=== PATIENT | male | born 1930 | race Caucasian/White ===

== ENCOUNTER 2017-03-02 15:35 | Emergency (ER) | payer MEDICARE, OTHER ==
[2017-03-02] MEDS ORDERED: OXYCODONE-ACETAMINOPHEN 5-325 MG TABLET PO ONE (17:17)
--- NOTE | 2017-03-02 17:19 | ER Document Report ---
ED Medical Screen (RME) - General Chief Complaint: Back Pain Stated Complaint: BACK PAIN Mode of Arrival: Wheelchair Information source: Patient Notes: 86-year-old male presents with complaints of back pain. Patient notes she's been having minor achiness in the low back for the past couple weeks today while he was trying to brush his teeth he had sharp pain in his low back pain around the right flank to the mid abdomen Patient admits to hurts with movement I have greeted and performed a rapid initial assessment of this patient. A comprehensive ED assessment and evaluation of the patient, analysis of test results and completion of the medical decision making process will be conducted by additional ED providers. PHYSICAL EXAMINATION: GENERAL: Well-appearing, well-nourished and in no acute distress. Patient in wheelchair HEAD: Atraumatic, normocephalic. EYES: Pupils equal round and reactive to light, extraocular movements intact, sclera anicteric, conjunctiva are normal. ENT: Nares patent, oropharynx clear without exudates. Moist mucous membranes. NECK: Normal range of motion, supple without lymphadenopathy LUNGS: Breath sounds clear to auscultation bilaterally and equal. No wheezes rales or rhonchi. HEART: Regular rate and rhythm without murmurs ABDOMEN: Soft, nontender, nondistended abdomen. No guarding, no rebound. No masses appreciated. Musculoskeletal: Right flank tenderness worsen with movement NEUROLOGICAL: Cranial nerves grossly intact. Normal speech, normal gait. Normal sensory, motor exams PSYCH: Normal mood, normal affect. SKIN: Warm, Dry, normal turgor, no rashes or lesions noted. TRAVEL OUTSIDE OF THE [place] IN LAST 30 DAYS: No - Related Data Allergies/Adverse Reactions: No Known Allergies Allergy (Verified 03/02/17 15:38) Past Medical History - Social History Chew tobacco use (# tins/day): No Frequency of alcohol use: None Drug Abuse: None - Past Medical History Cardiac Medical History: Reports: Hx Hypertension - recently taken off medication Denies: Hx Heart Attack Pulmonary Medical History: Denies: Hx Asthma Neurological Medical History: Denies: Hx Cerebrovascular Accident, Hx Seizures Renal/ Medical History: Denies: Hx Peritoneal Dialysis GI Medical History: Denies: Hx Hepatitis, Hx Hiatal Hernia, Hx Ulcer Infectious Medical History: Denies: Hx Hepatitis Surgical Hx: Negative Past Surgical History: Denies: Hx Open Heart Surgery, Hx Pacemaker Physical Exam - Vital signs Vitals: Temp Pulse Resp BP Pulse Ox 98.2 F 92 19 165/97 H 94 03/02/17 15:39 03/02/17 15:39 03/02/17 15:39 03/02/17 15:39 03/02/17 15:39 Course - Vital Signs Vital signs: Temp Pulse Resp BP Pulse Ox 98.2 F 92 19 165/97 H 94 03/02/17 15:39 03/02/17 15:39 03/02/17 15:39 03/02/17 15:39 03/02/17 15:39
[2017-03-02 17:53] LABS: ABSOLUTE BASOPHILS # (AUTO) 0.1 10^3/uL (0.0-0.2); ABSOLUTE EOSINOPHILS # (AUTO) 0.3 10^3/uL (0.0-0.6); ABSOLUTE LYMPHOCYTES (AUTO) 1.3 10^3/uL (0.5-4.7); ABSOLUTE MONOCYTES (AUTO) 0.6 10^3/uL (0.1-1.4); EOSINOPHILS % (AUTO) 3.5 % (0-6); HEMATOCRIT 48.5 % (37.9-51.0); HGB HCT DIFFERENCE -0.5; LYMPHOCYTES % (AUTO) 17.8 % (13-45); MEAN CORPUSCULAR VOLUME 91 fl (80-97); MONOCYTES % (AUTO) 7.7 % (3-13); RED BLOOD COUNT 5.34 10^6/uL (4.35-5.55); RED CELL DISTRIBUTION WIDTH 13.7 % (11.5-14.0); WHITE BLOOD COUNT 7.1 10^3/uL (4.0-10.5)
[2017-03-02 18:08] LABS: ALANINE AMINOTRANSFERASE 27 U/L (21-72); ALBUMIN 4.6 g/dL (3.5-5.0); ALKALINE PHOSPHATASE 66 U/L (38-126); ANION GAP 14 (5-19); ASPARTATE AMINO TRANSFERASE 24 U/L (17-59); BILIRUBIN,DIRECT 0.3 mg/dL (0.0-0.4); BILIRUBIN,TOTAL 0.8 mg/dL (0.2-1.3); BLOOD UREA NITROGEN 27 mg/dL (7-20); CALCIUM 9.7 mg/dL (8.4-10.2); CARBON DIOXIDE 27 mmol/L (22-30); CHLORIDE 104 mmol/L (98-107); CREATININE RESULT 1.38 mg/dL (0.52-1.25); GLUCOSE 100 mg/dL (75-110); LIPASE 527.5 U/L (23-300); POTASSIUM 4.9 mmol/L (3.6-5.0); SODIUM 144.6 mmol/L (137-145); TOTAL PROTEIN 7.6 g/dL (6.3-8.2)
[2017-03-02] MEDS ORDERED: NORMAL SALINE 1000 ML 1,000 ML IV PRN (18:24)
--- NOTE | 2017-03-02 18:28 | ER Document Report ---
ED General - General Chief Complaint: Back Pain Stated Complaint: BACK PAIN Time seen by provider: 18:26 Mode of Arrival: Wheelchair Information source: Patient Notes: 86-year-old man with a history of hypertension and dyslipidemia presents to the emergency room with back pain. Patient states he started having back pain 2 weeks ago but it was not bad at this time. Patient states he was standing up at the time and had acute onset of right lower back pain which was nonradiating in nature. He states that the pain is actually somewhat better. TRAVEL OUTSIDE OF THE [place] IN LAST 30 DAYS: No - HPI Onset: Just prior to arrival Onset/Duration: Sudden Quality of pain: Sharp Severity: Severe Pain Level: 4 Associated symptoms: denies: Chills, Fever, Shortness of breath Exacerbated by: Denies Relieved by: Denies Similar symptoms previously: No Recently seen / treated by doctor: No - Related Data Allergies/Adverse Reactions: No Known Allergies Allergy (Verified 03/02/17 15:38) Past Medical History - General Information source: Patient - Social History Smoking Status: Never Smoker Chew tobacco use (# tins/day): No Frequency of alcohol use: None Drug Abuse: None Lives with: Spouse/Significant other Family History: None Patient has suicidal ideation: No Patient has homicidal ideation: No - Past Medical History Cardiac Medical History: Reports: Hx Hypertension - recently taken off medication Denies: Hx Heart Attack Pulmonary Medical History: Denies: Hx Asthma Neurological Medical History: Denies: Hx Cerebrovascular Accident, Hx Seizures Renal/ Medical History: Denies: Hx Peritoneal Dialysis GI Medical History: Denies: Hx Hepatitis, Hx Hiatal Hernia, Hx Ulcer Infectious Medical History: Denies: Hx Hepatitis Surgical Hx: Negative Past Surgical History: Denies: Hx Open Heart Surgery, Hx Pacemaker Review of Systems - Review of Systems Constitutional: denies: Chills, Fever EENT: No symptoms reported Cardiovascular: No symptoms reported Respiratory: No symptoms reported Gastrointestinal: denies: Abdomen distended, Abdominal pain, Vomiting Genitourinary: denies: No symptoms reported Male Genitourinary: No symptoms reported Musculoskeletal: See HPI Skin: No symptoms reported Hematologic/Lymphatic: No symptoms reported Neurological/Psychological: denies: Weakness, Gait changes, Paralysis, Numbness Physical Exam - Vital signs Vitals: Temp Pulse Resp BP Pulse Ox 98.2 F 92 19 165/97 H 94 03/02/17 15:39 04/29/17 15:39 03/02/17 15:39 03/02/17 15:39 03/02/17 15:39 Notes: Physical exam: GENERAL: Pleasant 86-year-old man, alert and oriented 3, no acute distress HEAD: Atraumatic, normocephalic. EYES: Pupils equal round and reactive to light, extraocular movements intact, sclera anicteric, conjunctiva are normal. ENT: TMs normal, nares patent, oropharynx clear without exudates. Moist mucous membranes. NECK: Normal range of motion, supple without lymphadenopathy or JVD. LUNGS: Breath sounds clear to auscultation bilaterally and equal. No wheezes rales or rhonchi. HEART: Regular rate and rhythm without murmurs, rubs or gallops. ABDOMEN: Soft, normoactive bowel sounds. No tenderness to palpation. No guarding, no rebound. No masses appreciated. Back: No spinal tenderness, crepitus or step offs. Patient does have right paraspinal tenderness without any obvious palpable masses or deformities. EXTREMITIES: Normal range of motion, no pitting or edema. No clubbing or cyanosis. NEUROLOGICAL: Cranial nerves II through XII grossly intact. Normal speech, normal gait. PSYCH: Normal mood, normal affect. SKIN: Warm, Dry, normal turgor, no rashes or lesions noted. Course - Re-evaluation Re-evalutation: 03/02/17 22:32 Note: Given the patient's hypertension and acute onset of back pain, AAA was considered a possibility and therefore CT of the abdomen was obtained. Bedside ultrasound showed poor visualization of the aorta at that time. Patient was given IV fluids prior to the CT scan. Labs reviewed a mildly elevated lipase. Repeat exam of the patient's epigastrium and right upper quadrant did not reveal any significant tenderness. Right upper quadrant was obtained to look for any abnormalities in that region and none was found. The patient is comfortable currently and the plan will be for him to follow-up with his primary care doctor on Saturday. I've given him a copy of the radiologic reports as well as the labs to bring to the primary care doctor's office. If the patient has persistent plane, I've recommended he have an outpatient MRI. - Vital Signs Vital signs: Temp Pulse Resp BP Pulse Ox 98.2 F 92 19 165/97 H 94 03/02/17 15:39 03/02/17 15:39 03/02/17 15:39 03/02/17 15:39 03/02/17 15:39 - Laboratory Result Diagrams: 03/02/17 17:27 03/02/17 17:27 Laboratory results interpreted by me: 03/02/17 17:27 BUN 27 H Creatinine 1.38 H Est GFR ( Amer) 59 L Est GFR (Non-Af Amer) 49 L Lipase 527.5 H Discharge - Discharge Clinical Impression: back pain, hypertension Condition: Stable Disposition: HOME, SELF-CARE Instructions: Oral Narcotic Medication ([facility]) Additional Instructions: As we discussed: Your labs did show mildly elevated lipase. For this reason, we did a right upper quadrant ultrasound which showed no evidence of gallbladder disease. He did receive a CT of the abdomen which showed no acute process. Recommendations: Take the pain medicine as prescribed. Take nausea medicine as needed. Follow-up with your primary care doctor on Saturday: Bring a copy of today's lab tests and labs with you when you go to see the primary care doctor. Also, have your blood pressure rechecked, it was elevated in the ER. If you have persistent back pain, you may require an outpatient MRI of the back. Return to the emergency room for worsening pain, difficulty with your bowels or bladder or any concerns he getting worse. The pain medicine you're taking prescribed as a narcotic. There are several important things you should know about this medicine: 1. This medicine contains Tylenol: It is important that you do not take Tylenol (or acetaminophen) while on this medicine. Tylenol is metabolized by the liver and taking too much Tylenol (acetaminophen) can lay to liver damage and even liver failure. 2. Taking narcotics for too long can lead to physical and mental dependence. Take this medicine only if really needed and in the lowest quantity to achieve pain relief. 3. Do not drink alcohol while on this medicine. Alcohol interacts with narcotics and the combination can be dangerous. 4. Do not drive or operate machinery while on this medicine. 5. Narcotics do cause constipation, so drink plenty of fluids and daily stool softeners. Prescriptions: Oxycodone HCl/Acetaminophen [Percocet 5-325 mg Tablet] 1 - 2 tab PO ASDIR PRN # 15 tablet PRN Reason: Forms: Elevated Blood Pressure Referrals: SONIA NORTON DO [Primary Care Provider] - 03/04/17
[2017-03-02 19:24] LABS: APPEARANCE,URINE CLEAR; BILIRUBIN,URINE NEGATIVE (NEGATIVE); GLUCOSE, URINE NEGATIVE (NEGATIVE); KETONES,URINE NEGATIVE (NEGATIVE); LEUKOCYTE ESTERASE,URINE NEGATIVE (NEGATIVE); NITRITE,URINE NEGATIVE (NEGATIVE); PROTEIN,URINE NEGATIVE (NEGATIVE); URINE SPECIFIC GRAVITY 1.034; UROBILINOGEN,URINE NEGATIVE mg/dL (<2.0)
[2017-03-02 22:31] VITALS: BP 151/68
== END 2017-03-02 22:19 | disposition home or self-care (01) ==
LOC: ER 15:35
DX: M54.9 Dorsalgia, unspecified (principal); I10 Essential (primary) hypertension; E78.5 Hyperlipidemia, unspecified
CPT/HCPCS: 99284; 96360; 96361; 36415; 83690; 85025; 80053; 81001; 76705; 74177; A9270; J7030